=== PATIENT | male | born 1950 | race Hispanic/Latino ===

== ENCOUNTER 2018-03-18 07:42 | Outpatient (CLI) | payer OTHER | END 2018-03-18 20:09 | disposition home or self-care (01) | LOC: CT 07:42 | DX: M05.79 Rheumatoid arthritis with rheumatoid factor of multiple sites without organ or systems involvement (principal); I25.10 Atherosclerotic heart disease of native coronary artery without angina pectoris; J90 Pleural effusion, not elsewhere classified ==

== ENCOUNTER 2018-06-26 08:07 | Outpatient (CLI) | payer OTHER | END 2018-06-26 19:05 | disposition home or self-care (01) | LOC: CT 08:07 | DX: M05.79 Rheumatoid arthritis with rheumatoid factor of multiple sites without organ or systems involvement (principal); R91.8 Other nonspecific abnormal finding of lung field; R94.2 Abnormal results of pulmonary function studies ==

== ENCOUNTER 2018-09-29 11:14 | Outpatient (CLI) | payer OTHER ==
[2018-09-29 12:04] LABS: POTASSIUM 4.9 mmol/L (3.6-5.2)
== END 2018-09-29 23:02 | disposition home or self-care (01) ==
LOC: LABW 11:14
PROVIDERS: Nurse Practitioner Family
DX: E87.5 Hyperkalemia (principal)
CPT/HCPCS: 36415; 80048

== ENCOUNTER 2019-06-29 10:15 | Outpatient (CLI) | payer OTHER | END 2019-06-29 19:16 | disposition home or self-care (01) | LOC: RAD 10:15 | DX: M05.79 Rheumatoid arthritis with rheumatoid factor of multiple sites without organ or systems involvement (principal); M19.041 Primary osteoarthritis, right hand; M19.042 Primary osteoarthritis, left hand; M19.071 Primary osteoarthritis, right ankle and foot; M19.072 Primary osteoarthritis, left ankle and foot ==

== ENCOUNTER 2021-11-07 15:59 | Outpatient (CLI) | payer OTHER | END 2021-11-07 19:22 | disposition home or self-care (01) | LOC: RAD 15:59 | PROVIDERS: ATTEND Nurse Practitioner Family | DX: L40.0 Psoriasis vulgaris (principal); Z79.899 Other long term (current) drug therapy; L40.59 Other psoriatic arthropathy; M05.79 Rheumatoid arthritis with rheumatoid factor of multiple sites without organ or systems involvement; M16.0 Bilateral primary osteoarthritis of hip ==